=== PATIENT | male | born 1965 | race Caucasian/White ===

== ENCOUNTER 2016-08-26 16:47 | Observation (INO) | payer OTHER ==
[~2016-08-26] VITALS: Ht 175.3 cm; Wt 77.1 kg
--- NOTE | 2016-08-26 16:57 | NUR ---
TRIAGE: 51 Y/O MALE SENT TO EMERGENCY DEPARTMENT FOR RULE OUT AAA. PER PHYSICIAN 1 URGENT C[facility], BP IN ONE ARM IN OFFICE WAS 150/80 - BP WAS NEVER CHECKED IN THE OTHER ARM "BECAUSE HE WASN'T THERE LONG ENOUGH." REPORTS 08/19 UPPER ABDOMEN. LAST BOWEL MOVEMENT THIS AFTERNOON. +NAUSEA/ -VOMITING. BP IN TRIAGE LEFT ARM, MANUALLY: 148/96 BP IN TRIAGE RIGHT ARM, MANUALLY: 140/94
--- NOTE | 2016-08-26 17:01 | ED GI/GU/ABDOMINAL COMPLAINT ---
History of Present Illness General Chief Complaint: Abdominal Pain/Flank Pain Stated Complaint: PT SIB URGENT CARE FOR ABDOMINAL PAIN Source: patient Exam Limitations: no limitations Vital Signs & Intake/Output Vital Signs & Intake/Output Vital Signs Date Time Temp Pulse Resp B/P B/P Pulse O2 O2 Flow FiO2 Mean Ox Delivery Rate 08/26 2045 98.8 113 18 134/90 94 Room Air 08/26 1921 97.8 80 20 168/72 98 Room Air 08/26 1800 98.0 84 20 134/84 100 Room Air 08/26 1756 Room Air Room Air 08/26 1656 97.8 108 18 148/90 98 Room Air Room Air Allergies Coded Allergies: No Known Allergies (08/26/16) Reconcile Medications Armodafinil (Nuvigil) 150 MG TABLET 0.5 TAB PO DAILY FATIGUE (Reported) Biotin 5,000 MCG TAB.RAPDIS 1 TAB PO DAILY SUPPLEMENT (Reported) Cholecalciferol (Vitamin D3) (Vitamin D) 2,000 UNIT TABLET 4,500 IU PO DAILY SUPPLEMENT (Reported) Clobetasol Propionate (Clobex) 0.05 % SHAMPOO 1 KASSY TOP QSAT SCALP (Reported) Levothyroxine Sodium (Synthroid) 88 MCG TABLET 1 TAB PO DAILY THYROID ( Reported) Multivitamin (Daily Value) 1 EACH TABLET 1 TAB PO DAILY SUPPLEMENT (Reported) Testosterone Cypionate 100 MG/ML VIAL 40 MG IM QTUES HRT (Reported) Vitamin K2 40 MCG TABLET 100 MCG PO DAILY SUPPLEMENT (Reported) Triage Note: TRIAGE: 51 Y/O MALE SENT TO EMERGENCY DEPARTMENT FOR RULE OUT AAA. PER PHYSICIAN 1 URGENT C[facility], BP IN ONE ARM IN OFFICE WAS 150/80 - BP WAS NEVER CHECKED IN THE OTHER ARM "BECAUSE HE WASN'T THERE LONG ENOUGH." REPORTS 08/19 UPPER ABDOMEN. LAST BOWEL MOVEMENT THIS AFTERNOON. +NAUSEA/ -VOMITING. BP IN TRIAGE LEFT ARM, MANUALLY: 148/96 BP IN TRIAGE RIGHT ARM, MANUALLY: 140/94 Triage Nurses Notes Reviewed? yes Onset: Abrupt Duration: hour(s): (6-8), constant, continues in ED, getting worse Timing: single episode today Quality/Severity: cramping, dullness, moderate Severity Numbers: 6 Location: epigastric, generalized abdomen Radiation: no radiation Activities at Onset: none Prior Abdominal Problems: none Past Sexual History: Unobtainable at this time No Modifying Factors: none Associated Symptoms: abdominal pain, loss of appetite, nausea/vomiting HPI: 51-year-old male with history of hypothyroidism presents for evaluation of abdominal pain and nausea. Patient reports abdominal pain first started this morning when he woke up and has been gradually worsening. Pain is located diffusely in the abdomen but is worse in the epigastric and rlq. He rates the pain as a 6 out of 10 and it does not radiate. He describes the pain as dull discomfort. Not taking any medication to improve symptoms. There are no aggravating or alleviating factors. He reports his appetite has been decreased due to the pain today. Was associated nausea without any vomiting. No diarrhea , sick contacts, shortness of breath, chest pain, back pain, fever, urinary symptoms. No previous abdominal surgeries or similar symptoms. (ANABELA HERNANDEZ PA-C) Past History Travel History Traveled to [place] past 21 day No Medical History Any Pertinent Medical History? 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 No (ANABELA HERNANDEZ PA-C) Review of Systems Review of Systems Constitutional: Reports: no symptoms. EENTM: Reports: no symptoms. Respiratory: Reports: no symptoms. Cardiovascular: Reports: no symptoms. GI: Reports: see HPI, abdominal pain, nausea. Genitourinary: Reports: no symptoms. Musculoskeletal: Reports: no symptoms. Skin: Reports: no symptoms. Neurological/Psychological: Reports: no symptoms. Hematologic/Endocrine: Reports: no symptoms. Immunologic/Allergic: Reports: no symptoms. All Other Systems: Reviewed and Negative (ANABELA HERNANDEZ PA-C) Physical Exam Physical Exam General Appearance: well developed/nourished, no apparent distress, alert, awake , anxious, mild distress Head: atraumatic, normal appearance Eyes: Bilateral: normal appearance, PERRL, EOMI, normal inspection. Ears, Nose, Throat, Mouth: hearing grossly normal, moist mucous membrane, Tympanic normal Neck: normal inspection, supple, full range of motion, normal alignment Respiratory: normal breath sounds, chest non-tender, no respiratory distress, lungs clear Cardiovascular: regular rate/rhythm, normal peripheral pulses Peripheral Pulses: 2+ tibialis posterior (R), 2+ tibialis posterior (L), 2+ dorsalis pedis (R), 2+ dorsalis pedis (L) Gastrointestinal: normal bowel sounds, soft, no organomegaly, tenderness (RLQ, EPIGASTRIC) Male Genitals: normal genitalia Back: normal inspection, normal range of motion, no vertebral tenderness Extremities: normal range of motion Neurologic/Psych: no motor/sensory deficits, awake, alert, oriented x 3, normal gait, normal mood/affect Skin: intact, normal color, warm/dry Core Measures ACS in differential dx? No Severe Sepsis Present: No Septic Shock Present: No (ANABELA HERNANDEZ PA-C) Progress Differential Diagnosis: AAA, appendicitis, biliary colic, bowel obstruction, cholecystitis, diverticulitis, gastritis, inflamm bowel dis, pancreatitis, peptic ulcer, PUD/GERD, SBO, ureterolithiasis, UTI/pyelo Plan of Care: Orders Procedure Date/time Status Regular Diet 08/27 B Active CBC WITHOUT DIFFERENTIAL 08/27 06 Active BASIC ELECTROLYTES PLUS BUN&CR 08/27 06 Active Pathway - chart 08/[address] in observation 08/26 2319 Active Patient Data 08/26 2319 Active Code Status 08/26 2310 Active EKG 08/26 2052 Active FingerStick- Glucose 08/26 2046 Active URINALYSIS 08/26 1725 Complete LIPASE 08/26 1725 Complete C-REACTIVE PROTEIN 08/26 1725 Complete COMPREHENSIVE METABOLIC PANEL 08/26 1725 Complete CBC WITHOUT DIFFERENTIAL 08/26 1725 Complete AMYLASE 08/26 1725 Complete Intake & Output 08/26 1650 Active Wound Care/Dressing 08/26 UNK Active VTE Mechanical Prophylaxis 08/26 UNK Active Vital Signs 08/26 UNK Active Intake & Output 08/26 UNK Active Activity/Ambulation 08/26 UNK Active Current Medications Sig/Laiyah Start time Last Medication Dose Stop Time Status Admin Levothyroxine Sodium 0.088 MG DAILY 08/27 1000 UNVr (Synthroid) Heparin Sodium 5,000 UNIT Q8 08/27 0600 UNVr (Porcine) Ampicillin Sodium/ 3,000 MG Q6H 08/27 0200 UNVr Sulbactam Sodium (Unasyn) Sodium Chloride 100 ML (Normal Saline 0.9%) Acetaminophen 650 MG Q6P PRN 08/26 2315 UNVr (Tylenol) Dextrose/Sodium 1,000 ML .[id number] 08/26 2314 UNVr Chloride (D5W-1/2 Normal Saline 1000ML) Morphine Sulfate 2 MG Q2P PRN 08/26 2314 UNVr (Morphine) Morphine Sulfate 4 MG Q2P PRN 08/26 2314 UNVr (Morphine) Ondansetron HCl 4 MG Q6P PRN 08/26 2314 UNVr (Zofran) Oxycodone/ 1 TAB Q4P PRN 08/26 2314 UNVr Acetaminophen (Percocet) Oxycodone/ 2 TAB Q4P PRN 08/26 2314 UNVr Acetaminophen (Percocet) Promethazine HCl 12.5 MG Q6P PRN 08/26 2314 UNVr (Phenergen) 09/02 2313 Laboratory Tests 08/26/16 1905: Urine Color YEL, Urine Clarity CLEAR, Urine pH 7.5, Ur Specific Snowflake 1.010, Urine Protein NEG, Urine Ketones NEG, Urine Nitrite NEG, Urine Bilirubin NEG, Urine Urobilinogen 0.2, Ur Leukocyte Esterase NEG, Ur Microscopic EXAM NOT REQUIRED, Urine Hemoglobin NEG, Urine Glucose NEG 08/26/16 1740: Anion Gap 13, Estimated GFR > 60, BUN/Creatinine Ratio 21.3, Glucose 118 H, Calcium 9.5, Total Bilirubin 0.7, AST 23, ALT 48, Alkaline Phosphatase 62, C- Reactive Prot, Quant < 0.5, Total Protein 6.7, Albumin 4.3, Globulin 2.4, Albumin/Globulin Ratio 1.8, Amylase 49, Lipase 74, CBC w Diff NO MAN DIFF REQ, RBC 5.40, MCV 89.4, MCH 29.0, RDW 13.6, MPV 9.4, Gran % 92.1 H, Lymphocytes % 4.2 L, Monocytes % 3.1, Eosinophils % 0.4, Basophils % 0.2, Absolute Granulocytes 18.6 H, Absolute Lymphocytes 0.8 L, Absolute Monocytes 0.6, Absolute Eosinophils 0.1, Absolute Basophils 0, PUBS MCHC 32.4 L 5:22 PM patient seen and evaluated. Currently nontoxic appearing and afebrile. Basic blood work and urine will be ordered. Patient will be given a GI cocktail. He currently is refusing any pain medication. We'll also order a CT scan of his abdomen and pelvis with contrast and follow-up on all results. 7:17PM: CT scan of the abdomen and pelvis with contrast showed evidence of acute appendicitis. White blood cell count elevated 20. Surgery paged, patient started on Unasyn, IV Tylenol given for pain. 7:39 PM: Spoke with Dr. Cadena and surgical PA. They will come and evaluate the patient and likely taken to the OR tonight. (DAVID HIDALGO,ANABELA) Initial ED EKG: none (DAVID HIDALGO,ANABELA) Departure Departure Disposition: STILL A PATIENT Condition: Stable Clinical Impression Primary Impression: Acute appendicitis Qualifiers: Acute appendicitis type: unspecified acute appendicitis type Qualified Code: K35.80 - Unspecified acute appendicitis Referrals: MERLY FUENTES,JARVIS Harrison (PCP/Family) Departure Forms: Customer Survey General Discharge Information OR/GI Note Spoke With: JOE SUNG DO ED Treatment Decision: LIGIA WINSTON requires urgent operative management or an emergent procedure that cannot be performed in the Emergency Room setting. CT scan of the abdomen and pelvis showed evidence of acute appendicitis. White blood cell count was elevated to 20. Patient will be taken to the OR from the emergency department for laparoscopic appendectomy. 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 I have also reviewed all the pertinent lab results and diagnostic results. I agree with the findings and the plan of care as documented in the PA's/GRAIN UNLOADER MACHINE's documentation. [] I have reviewed the ED Record and agree with the PA's/GRAIN UNLOADER MACHINE's documentation. [] Additions or exceptions (if any) to the PAs/GRAIN UNLOADER MACHINE's note and plan are summarized below: [] (ELSIE FUENTES,RADHA)
--- NOTE | 2016-08-26 17:17 | NUR ---
VIOLET HERNANDEZ AT BEDSIDE
[2016-08-26] MEDS ORDERED: SYNTHROID88 MCG PO (17:31)
[2016-08-26] MEDS ORDERED: BIOTIN5000 MCG PO (17:32)
[2016-08-26] MEDS ORDERED: VITAMIN D2000 UNI1 PO (17:32)
[2016-08-26] MEDS ORDERED: DAILY VALUE1 EACH PO (17:32)
[2016-08-26] MEDS ORDERED: TESTOSTERO100 MG/1 M IM (17:33)
[2016-08-26] MEDS ORDERED: CLOBEX118 ML TOP (17:33)
[2016-08-26] MEDS ORDERED: VITAMIN K240 MCG PO (17:34)
[2016-08-26] MEDS ORDERED: NUVIGIL150 M1 PO (17:34)
--- NOTE | 2016-08-26 17:55 | NUR ---
PT MEDICATED WITH GI COCKTAIL PER ORDERS IV ACCESS ESTABLISHED, #20 LFA IVF N/S INFUSION INITIATED PER ORDERS
[2016-08-26 18:04] LABS: ABSOLUTE BASOPHIL COUNT 0 /CUMM (0.0-0.2); ABSOLUTE EOSINOPHIL COUNT 0.1 /CUMM (0.0-0.7); ABSOLUTE GRANULOCYTE CT 18.6 /CUMM (1.4-6.5); ABSOLUTE LYMPH COUNT 0.8 /CUMM (1.2-3.4); ABSOLUTE MONOCYTE COUNT 0.6 /CUMM (0.10-0.60); BASOPHIL % 0.2 % (0.0-2.0); EOSINOPHIL % 0.4 % (0-5); GRANULOCYTE % 92.1 % (42.2-75.2); HEMATOCRIT 48.3 % (42-52); MEAN CORPUSCULAR HGB CONC 32.4 G/DL (33.0-37.0); MEAN CORPUSCULAR VOLUME 89.4 FL (80.0-94.0); MEAN PLATELET VOLUME 9.4 FL (7.4-10.4); PLATELET COUNT 286 /CUMM (130-400); RBC DISTRIBUTION WIDTH 13.6 % (11.5-14.5); WHITE BLOOD CELL COUNT 20.2 /CUMM (4.8-10.8)
--- NOTE | 2016-08-26 19:07 | CT SCAN REPORT ---
EXAMINATION: CT ABDOMEN AND PELVIS WITH CONTRAST CLINICAL INFORMATION: Generalized abdominal pain. Presumptive diagnosis of pancreatitis and small bowel obstruction. COMPARISON: None. TECHNIQUE: Multidetector CT volumetric acquisition of the abdomen and pelvis was performed after the administration of 95 mL of intravenous Optiray 320. The data set was reformatted in the sagittal and coronal planes and reviewed on an independent workstation. DLP: 295.7 mGy-cm. FINDINGS: LOWER CHEST: Dependent atelectasis in both lung bases. LIVER, GALLBLADDER, BILIARY TREE: Liver normal size and attenuation. No focal cystic or solid mass or intra-or extrahepatic ductal dilatation. Hepatic and portal veins patent. Gallbladder is contracted and suboptimally assessed, but grossly unremarkable. PANCREAS: Normal. No evidence of acute pancreatitis. No ductal dilatation, mass, or surrounding stranding. SPLEEN: Normal size and appearance. Small accessory splenule is seen in the splenic hilar region. Splenic vein patent. ADRENAL GLANDS AND KIDNEYS: Adrenal glands normal. Kidneys bilaterally symmetric in size and function. No focal mass, hydronephrosis, nephrolithiasis or perinephric stranding. URETERS AND BLADDER: Ureters decompressed and within normal limits. Bladder partially distended and within normal limits. PELVIC ORGANS: Prostate gland mildly enlarged and heterogeneous. Seminal vesicles mildly enlarged. GASTROINTESTINAL TRACT: No evidence of bowel obstruction. Small and large bowel loops decompressed. Appendix is retrocecal in appearance and abnormally dilated and fluid-filled with a maximal transverse diameter of 1.3 cm. There is mild surrounding periappendiceal stranding and findings are highly suspicious for acute appendicitis. No periappendiceal phlegmon or abscess is seen and no evidence of bowel perforation is noted. ABDOMINAL WALL: There is a tiny fat-containing umbilical hernia. LYMPHOVASCULAR STRUCTURES: Abdominal aorta normal in caliber. No periaortic collections. No abdominal or pelvic adenopathy or free fluid collection. BONES: There is minimal vertebral endplate spurring seen in the lower thoracic spine and throughout the lumbar spine. No suspicious bone findings are noted. IMPRESSION: 1. Above findings are highly suspicious for uncomplicated acute appendicitis. 2. No evidence of bowel obstruction/perforation. 3. No evidence of pancreatitis. 4. Tiny fat-containing umbilical hernia. 5. Enlarged heterogeneous prostate gland. Findings discussed with Jones Robles PA-C 08/26/2016, 6:57 PM and it was ascertained that the content and urgency of the exam results was understood at the time of direct communication.
--- NOTE | 2016-08-26 19:17 | NUR ---
PT MEDICATED WITH 1G OFFIRMEV PER EMAR
--- NOTE | 2016-08-26 19:59 | NUR ---
PT MEDICATED WITH 3G UNASYN PER EMAR. NO BLOOD CULTURES REQUIRED BEFORE MEDICATION ADMINISTRATION PER VIOLET HERNANDEZ.
--- NOTE | 2016-08-26 20:23 | NUR ---
SURGICAL PA AT BEDSIDE
--- NOTE | 2016-08-26 20:50 | NUR ---
PRE-OP CHECKLIST COMPLETED AND GIVEN TO ANESTHESIA. ANESTHESIA AT BEDSIDE.
--- NOTE | 2016-08-26 20:54 | NUR ---
PT TAKEN TO OR
--- NOTE | 2016-08-26 21:13 | History & Physical Pre-Op ---
LLOYD GILLESPIE 08/26/16 2103: General Information and HPI History of Present Illness: Patient presents to the ER today with complaints of abdominal pain that began this am. He states that he felt diffuse abdominal discomfort that persisted after a bowel movement and worsened throughout the day. His discomfort was not relieved after ingesting food and he began to feel general malaise. He went to an urgent care facility prior to coming to emergency department and was advised to seek a higher level of care to rule out appendicitis. He denies having any nausea or vomitting. He did not have any loose stools. Allergies/Medications Allergies: Coded Allergies: No Known Allergies (08/26/16) Home Med list Armodafinil (Nuvigil) 150 MG TABLET 0.5 TAB PO DAILY FATIGUE (Reported) Biotin 5,000 MCG TAB.RAPDIS 1 TAB PO DAILY SUPPLEMENT (Reported) Cholecalciferol (Vitamin D3) (Vitamin D) 2,000 UNIT TABLET 4,500 IU PO DAILY SUPPLEMENT (Reported) Clobetasol Propionate (Clobex) 0.05 % SHAMPOO 1 KASSY TOP QSAT SCALP (Reported) Levothyroxine Sodium (Synthroid) 88 MCG TABLET 1 TAB PO DAILY THYROID ( Reported) Multivitamin (Daily Value) 1 EACH TABLET 1 TAB PO DAILY SUPPLEMENT (Reported) Testosterone Cypionate 100 MG/ML VIAL 40 MG IM QTUES HRT (Reported) Vitamin K2 40 MCG TABLET 100 MCG PO DAILY SUPPLEMENT (Reported) Past History Medical History Neurological: FATIGUE 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 EENTM: Reports: no symptoms. Cardiovascular: Reports: no symptoms. Respiratory: Reports: no symptoms. GI: Reports: abdominal pain. Genitourinary: Reports: no symptoms. Musculoskeletal: Reports: no symptoms. Skin: Reports: no symptoms. Neurological/Psychological: Reports: no symptoms. Hematologic/Endocrine: Reports: no symptoms. Immunologic/Allergic: Reports: no symptoms. All Other Systems: Reviewed and Negative Exam & Diagnostic Data Last 24 Hrs of Vital Signs/I&O Vital Signs Date Time Temp Pulse Resp B/P B/P Pulse O2 O2 Flow FiO2 Mean Ox Delivery Rate 08/26 2045 98.8 113 18 134/90 94 Room Air 08/26 1921 97.8 80 20 168/72 98 Room Air 08/26 1800 98.0 84 20 134/84 100 Room Air 08/26 1756 Room Air Room Air 08/26 1656 97.8 108 18 148/90 98 Room Air Room Air Physical Exam: General: Alert and oriented x3, no acute distress Cardiac: RRR, [id number] Pulm: Non labored respiratory effort, CTA bilaterally Abdomen: Non-distended, diffuse tenderness in epigastric region presently Extremities: Moves all extremities, distal sensation intact, skin warm and well perfused, no jaundice, no peripheral edema, calves soft and non-tender bilaterally Last 24 Hrs of Labs/Maxim: Laboratory Tests 08/26/16 1740: Anion Gap 13, Estimated GFR > 60, BUN/Creatinine Ratio 21.3, Glucose 118 H, Calcium 9.5, Total Bilirubin 0.7, AST 23, ALT 48, Alkaline Phosphatase 62, C- Reactive Prot, Quant < 0.5, Total Protein 6.7, Albumin 4.3, Globulin 2.4, Albumin/Globulin Ratio 1.8, Amylase 49, Lipase 74, CBC w Diff NO MAN DIFF REQ, RBC 5.40, MCV 89.4, MCH 29.0, RDW 13.6, MPV 9.4, Gran % 92.1 H, Lymphocytes % 4.2 L, Monocytes % 3.1, Eosinophils % 0.4, Basophils % 0.2, Absolute Granulocytes 18.6 H, Absolute Lymphocytes 0.8 L, Absolute Monocytes 0.6, Absolute Eosinophils 0.1, Absolute Basophils 0, PUBS MCHC 32.4 L Diagnostic Data Other Results PATIENT: LIGIA WINSTON PRESENT AGE: 51 PATIENT ACCOUNT NO: [id number] : 64 LOCATION: [facility] ORDERING PHYSICIAN: ANABELA HERNANDEZ PA-C SERVICE DATE: 08/26/16 EXAM TYPE: CAT - CT ABD & PELVIS W IV CONTRAST EXAMINATION: CT ABDOMEN AND PELVIS WITH CONTRAST CLINICAL INFORMATION: Generalized abdominal pain. Presumptive diagnosis of pancreatitis and small bowel obstruction. COMPARISON: None. TECHNIQUE: Multidetector CT volumetric acquisition of the abdomen and pelvis was performed after the administration of 95 mL of intravenous Optiray 320. The data set was reformatted in the sagittal and coronal planes and reviewed on an independent workstation. DLP: 295.7 mGy-cm. FINDINGS: LOWER CHEST: Dependent atelectasis in both lung bases. LIVER, GALLBLADDER, BILIARY TREE: Liver normal size and attenuation. No focal cystic or solid mass or intra-or extrahepatic ductal dilatation. Hepatic and portal veins patent. Gallbladder is contracted and suboptimally assessed, but grossly unremarkable. PANCREAS: Normal. No evidence of acute pancreatitis. No ductal dilatation, mass, or surrounding stranding. SPLEEN: Normal size and appearance. Small accessory splenule is seen in the splenic hilar region. Splenic vein patent. ADRENAL GLANDS AND KIDNEYS: Adrenal glands normal. Kidneys bilaterally symmetric in size and function. No focal mass, hydronephrosis, nephrolithiasis or perinephric stranding. URETERS AND BLADDER: Ureters decompressed and within normal limits. Bladder partially distended and within normal limits. PELVIC ORGANS: Prostate gland mildly enlarged and heterogeneous. Seminal vesicles mildly enlarged. GASTROINTESTINAL TRACT: No evidence of bowel obstruction. Small and large bowel loops decompressed. Appendix is retrocecal in appearance and abnormally dilated and fluid-filled with a maximal transverse diameter of 1.3 cm. There is mild surrounding periappendiceal stranding and findings are highly suspicious for acute appendicitis. No periappendiceal phlegmon or abscess is seen and no evidence of bowel perforation is noted. ABDOMINAL WALL: There is a tiny fat-containing umbilical hernia. LYMPHOVASCULAR STRUCTURES: Abdominal aorta normal in caliber. No periaortic collections. No abdominal or pelvic adenopathy or free fluid collection. BONES: There is minimal vertebral endplate spurring seen in the lower thoracic spine and throughout the lumbar spine. No suspicious bone findings are noted. IMPRESSION: 1. Above findings are highly suspicious for uncomplicated acute appendicitis. 2. No evidence of bowel obstruction/perforation. 3. No evidence of pancreatitis. 4. Tiny fat-containing umbilical hernia. 5. Enlarged heterogeneous prostate gland. Findings discussed with Anabela Hernandez PA-C 08/26/2016, 6:57 PM and it was ascertained that the content and urgency of the exam results was understood at the time of direct communication. DICTATED BY: LISA RENTERIA MD DATE/TIME DICTATED:08/26/161846 NUT PACKER:ARTIE DATE/TIME TRANSCRIBED:08/26/161846 Assessment/Plan Assessment/Plan: This is a 51 year old male who presents today with acute abdominal pain. Had ct scan of abdomen which demonstrates an acute appendicits. His past medical history is significant for hypothyroidism. Past surgical history was a reduction of a broken arm as a child, no other surgical history reported. He has no known drug allergies, no known personal or family history of anesthesia complications. -Plan for laparoscopic appendectomy this evening -Unasyn IV 3 grams now -Offirmev for pain -Pre-op ekg/labs to be reviewed -Plan for discharge to home pending surgical outcome, if perforated, will admit for iv antibiotics -Discussed with Dr. Peter As Ranked By This Provider Problem List: 1. Acute appendicitis PINEDA REID ABRAHAM 08/26/16 2209: Attending MD Review Statement Attending Statement Attending MD Statement: examined this patient, discuss w/resident/PA/PHOTO EDITOR, agreed w/resident/PA/PHOTO EDITOR, discussed with family, reviewed images Attending Assessment/Plan: Patient seen and examined, agree with above. Abdominal pain that started earlier today. Clinically and confirmed with CT Abd/Pelvis diagnosis of acute appendicitis. AVSS. Abd-soft, right sided tenderness. WBC 20. Will admit, NPO/ IVF/IV Abx, plan for Lap Appy tonight. D/W patient and ED staff.
--- NOTE | 2016-08-26 22:17 | Operative Report ---
Operative/Inv Procedure Report Surgery Date: 08/26/16 Name of Procedure: Laparoscopic Appendectomy Pre-Operative Diagnosis: Acute Appendicitis Post-Operative Diagnosis: Same Estimated Blood Loss: less than 50ml Surgeon/[employer] Officer: JOE HOLMAN APRN Anesthesia: general endotracheal tube IV Fluids: 1900 cc Drains: None Specimens: Appendix Complications: None Condition: Stable Operative Indication: This is a 51-year-old male that presented to the emergency room with abdominal pain. After appropriate workup was completed the patient was diagnosed with acute appendicitis. A laparoscopic appendectomy was discussed in detail. All risks including but not limited to bleeding, infection, and injury to surrounding bowel were discussed in detail. The patient understood everything and decided to proceed. Operative/Procedure Note Note: The patient was brought to the operating room and placed on the table in supine position. Venodyne stockings were placed and adequate general endotracheal anesthesia was obtained. The patient was prepped and draped in standard surgical fashion. Began the procedure by making a 2 cm transverse incision in the infraumbilical crease. Incision was carried down to the fascia. Once the fascia was clearly visualized it was picked up between 2 Cora clamps and divided in the midline. Once we entered the peritoneum 2 stay Vicryl sutures were placed on each side and a 12 mm blunt port was inserted. The abdominal cavity was insufflated to 15 mmHg. And a 10 mm 45 laparoscope was introduced. Upon initial examination no obvious gross pathology was seen, some hyperemia and inflammatory reaction was noted in the right lower quadrant. Accessory trocars were placed, both 5 mm, one in the left lower quadrant and one suprapubic. Ascending colon was identified and traced proximally, terminal ileum was identified, and we did note the appendix coursing in a retrocecal fashion. The base of the appendix was identified and appeared healthy. Distal appendix was markedly inflamed and thickened and adhered to the sidewall and to the omentum. Using blunt dissection and harmonic scalpel the appendix was carefully dissected away from surrounding structures. Once the appendix was away from the omentum and the sidewall the mesoappendix was divided using Harmonic scalpel maintaining hemostasis until the appendiceal base was clearly visualized and freely up in the air. At that point we switched to a 5 mm laparoscope and a 45 mm berg Endo WENCESLAO load was inserted and the base was transected. The appendix was placed in an Endobag and removed through the umbilical trocar site. The abdominal cavity was reinsufflated and we switched back to a 10 mm laparoscope. Staple line was examined and some bleeding was noted, that was controlled using endoclips. No other abnormalities were noted. The pelvis and the right lower quadrant were irrigated until clear. All ports were removed under direct visualization, no obvious bleeding was noted. The umbilical trocar site was closed using 0 Vicryl suture. The skin was closed using 4-0 Monocryl. Steri-Strips and dressings were placed. The patient was successfully extubated and transferred to the recovery room in stable condition. The patient tolerated procedure well with no complications . Findings: Acute suppurative appendicitis, non-perforated CC: MERLY FUENTES,JARVIS Harrison
[2016-08-27 00:35] VITALS: BP 122/84
--- NOTE | 2016-08-27 00:58 | Admission Core Measures ---
Admission Lab Results I reviewed the following labs: Laboratory Tests 08/26 08/26 1905 1740 Chemistry Sodium (137 - 145 mmol/L) 142 Potassium (3.5 - 5.1 mmol/L) 4.2 Chloride (98 - 107 mmol/L) 103 Carbon Dioxide (22 - 30 mmol/L) 26 Anion Gap (5 - 16) 13 BUN (9 - 20 mg/dL) 17 Creatinine (0.7 - 1.2 mg/dL) 0.8 Estimated GFR (>60 ml/min) > 60 BUN/Creatinine Ratio (7 - 25 %) 21.3 Glucose (65 - 99 mg/dL) 118 H Calcium (8.4 - 10.2 mg/dL) 9.5 Total Bilirubin (0.2 - 1.3 mg/dL) 0.7 AST (17 - 59 U/L) 23 ALT (21 - 72 U/L) 48 Alkaline Phosphatase (< 127 U/L) 62 C-Reactive Prot, Quant (<1.0 mg/dL) < 0.5 Total Protein (6.3 - 8.2 g/dL) 6.7 Albumin (3.5 - 5.0 g/dL) 4.3 Globulin (1.9 - 4.2 gm/dL) 2.4 Albumin/Globulin Ratio (1.1 - 2.2 %) 1.8 Amylase (30 - 110 U/L) 49 Lipase (23 - 300 U/L) 74 Hematology CBC w Diff NO MAN DIFF REQ WBC (4.8 - 10.8 /CUMM) 20.2 H RBC (4.70 - 6.10 /CUMM) 5.40 Hgb (14.0 - 18.0 G/DL) 15.7 Hct (42 - 52 %) 48.3 MCV (80.0 - 94.0 FL) 89.4 MCH (27.0 - 31.0 PG) 29.0 RDW (11.5 - 14.5 %) 13.6 Plt Count (130 - 400 /CUMM) 286 MPV (7.4 - 10.4 FL) 9.4 Gran % (42.2 - 75.2 %) 92.1 H Lymphocytes % (20.5 - 51.1 %) 4.2 L Monocytes % (1.7 - 9.3 %) 3.1 Eosinophils % (0 - 5 %) 0.4 Basophils % (0.0 - 2.0 %) 0.2 Absolute Granulocytes (1.4 - 6.5 /CUMM) 18.6 H Absolute Lymphocytes (1.2 - 3.4 /CUMM) 0.8 L Absolute Monocytes (0.10 - 0.60 /CUMM) 0.6 Absolute Eosinophils (0.0 - 0.7 /CUMM) 0.1 Absolute Basophils (0.0 - 0.2 /CUMM) 0 PUBS MCHC (33.0 - 37.0 G/DL) 32.4 L Urines Urine Color (YEL,AMB,STR) YEL Urine Clarity (CLEAR) CLEAR Urine pH (5.0 - 8.0) 7.5 Ur Specific [place] (1.001 - 1.035) 1.010 Urine Protein (NEG,<30 MG/DL) NEG Urine Ketones (NEG) NEG Urine Nitrite (NEG) NEG Urine Bilirubin (NEG) NEG Urine Urobilinogen (0.1 - 1.0 EU/dl) 0.2 Ur Leukocyte Esterase (NEG) NEG Ur Microscopic EXAM NOT REQUIRED Urine Hemoglobin (NEG) NEG Urine Glucose (N MG/DL) NEG Admission Meds I reviewed the following Meds: Current Medications Sig/Aliyah Start time Last Medication Dose Stop Time Status Admin Acetaminophen 650 MG Q6P PRN 08/26 2314 UNVr (Tylenol) Ampicillin Sodium/ 3,000 MG Q6H 08/27 0200 UNVr Sulbactam Sodium (Unasyn) Sodium Chloride 100 ML (Normal Saline 0.9%) Dextrose/Sodium 1,000 ML .[id number] 08/26 2314 UNVr 08/27 Chloride 0029 (D5W-1/2 Normal Saline 1000ML) Heparin Sodium 5,000 UNIT Q8 08/27 0600 UNVr (Porcine) Levothyroxine Sodium 0.088 MG DAILY 08/27 1000 UNVr (Synthroid) Morphine Sulfate 2 MG Q2P PRN 08/26 2314 UNVr (Morphine) Morphine Sulfate 4 MG Q2P PRN 08/26 2314 UNVr (Morphine) Ondansetron HCl 4 MG Q6P PRN 08/26 2314 UNVr (Zofran) Oxycodone/ 1 TAB Q4P PRN 08/26 2314 UNVr Acetaminophen (Percocet) Oxycodone/ 2 TAB Q4P PRN 06/17 2315 UNVr Acetaminophen (Percocet) Promethazine HCl 12.5 MG Q6P PRN 08/26 2314 UNVr (Phenergen) 09/02 2314 Acute Coronary Syndrome Inclusion Criteria ACS Diagnosis No Inpatient Core Measures LDL Reminder: If No, please order W/I first 24hr of stay Congestive Heart Failure Inclusion Criteria CHF Diagnosis No Cerebrovascular accident Inclusion Criteria CVA/TIA Diagnosis No Inpatient Core Measures Bedside Swallow Eval Reminder: If BSE failed, place ST order Antithrombotic Reminder: Order Antithrombotic Medication by end of day 2 Antithrombotic Reminder: Document Reason Antithrombotic Not ordered by end of day 2 AFIB/Flutter Reminder: If Present, add to problem list AFIB/Flutter Reminder: Order Anticoag Medication for pts with AFIB/Flutter Atherosclerosis Reminder: If Present, add to problem list LDL Reminder: If No, please order W/I first 24hr of stay PT Order Reminder: If No, please order Venous thromboembolism Inpatient Core Measures VTE Risk Factors: Age > 40, Surgery [facility] prophylaxis d/t No contraindications No VTE Pharm Prophylaxis d/t No contraindications Inclusion Criteria - Per Current guidelines, there needs to be overlap - treatment for the first 5 days of Warfarin therapy. - Parenteral Anticoagulation (IV or SC) needs to be - given along with Warfarin therapy. VTE Diagnosis No VTE Type NONE VTE Confirmed by (Test) NONE Problem List As ranked by this Provider includes Assessment & Plan 1. Acute appendicitis HOME MEDS Home Med List Armodafinil (Nuvigil) 150 MG TABLET 0.5 TAB PO DAILY FATIGUE (Reported) Biotin 5,000 MCG TAB.RAPDIS 1 TAB PO DAILY SUPPLEMENT (Reported) Cholecalciferol (Vitamin D3) (Vitamin D) 2,000 UNIT TABLET 4,500 IU PO DAILY SUPPLEMENT (Reported) Clobetasol Propionate (Clobex) 0.05 % SHAMPOO 1 KASSY TOP QSAT SCALP (Reported) Levothyroxine Sodium (Synthroid) 88 MCG TABLET 1 TAB PO DAILY THYROID ( Reported) Multivitamin (Daily Value) 1 EACH TABLET 1 TAB PO DAILY SUPPLEMENT (Reported) Testosterone Cypionate 100 MG/ML VIAL 40 MG IM QTUES HRT (Reported) Vitamin K2 40 MCG TABLET 100 MCG PO DAILY SUPPLEMENT (Reported)
[2016-08-27] MEDS ORDERED: PERCOCET 5-3251 EACH PO (00:59)
--- NOTE | 2016-08-27 01:03 | Patient Discharge Instructions ---
Discharge Instructions General Discharge Information You were seen/treated for: Acute appendicitis You had these procedures: Laparoscopic appendectomy Watch for these problems: Increasing pain despite the use of pain medication. Increasing redness, warmth, swelling. Drainage from incisions Fever greater than 101.5 Persistent nausea and vomitting Inability urinate, move bowels, or pass gas. Do not soak the wound: Yes No bath, but you may shower: Yes Other wound care: Keep wound clean and dry. Allow steri strips to fall off, do not attempt to peel them off. This may take several days. Special Instructions: Advance diet as tolerated Diet Continue normal diet: Yes Recommended Diet: Regular Activity Full Activity/No Limits: No Activity Self Limited: Yes Pounds, do NOT lift more than: 10 Acute Coronary Syndrome Inclusion Criteria At DC or during hospital stay patient has or had the following: ACS DIAGNOSIS No Discharge Core Measures Meds if any: Prescribed or Continued at Discharge Meds if any: NOT Prescribed or Continued at Discharge Congestive Heart Failure Inclusion Criteria At DC or during hospital stay patient has or had the following: CHF DIAGNOSIS No Discharge Core Measures Meds if any: Prescribed or Continued at Discharge Meds if any: NOT Prescribed or Continued at Discharge Cerebrovascular accident Inclusion Criteria At DC or during hospital stay patient has or had the following: CVA/TIA Diagnosis No Discharge Core Measures Meds if any: Prescribed or Continued at Discharge Meds if any: NOT Prescribed or Continued at Discharge Venous thromboembolism Inclusion Criteria VTE Diagnosis No VTE Type NONE VTE Confirmed by (Test) NONE Discharge Core Measures - Per Current guidelines, there needs to be overlap - treatment for the first 5 days of Warfarin therapy. - If discharged on Warfarin prior to 5 days of - overlap therapy, the patient will need to be - assessed for post discharge needs including - *Post discharge parental anticoagulation - *Warfarin and/or parental anticoagulation education - *Follow up date to check INR post discharge At least 5 days overlap therapy as Inpatient No Meds if any: Prescribed or Continued at Discharge Note: Overlap Therapy is Warfarin and Anticoagulant Meds if any: NOT Prescribed or Continued at Discharge
--- NOTE | 2016-08-27 01:09 | Surgical Discharge Summary ---
Visit Information Visit Dates Admission Date: 08/26/16 Discharge Date: 08/27/17 History of Present Illness Chief Complaint: Acute abdominal pain secondary to appendicitis Medical History Neurological: FATIGUE Endocrine: hypothyroidism [employer]/Reproductive: LOW TESTOSTERONE Surgical History Pertinent Surgical History: none Psychosocial History What is Your Primary Language? American ETOH Use: denies use Review of Systems: See H&P Hospital Course Course Attending Physician: JOE PETER DO Primary Care Physician: JARVIS MORELAND MD Hospital Course: Jamey presented to Emergency Department on 08/26/2016 with complaints of abdominal pain and was found to have an acute appendicitis. He was taken to the Operating Room and underwent a laparoscopic appendectomy. He tolerated the procedure well. He was placed in observation status and sent to a general surgical floor for further administration of IV antibiotics and pain medication. His diet was advanced and tolerated, he voided spontaneously. At the time of discharge, his vital signs were stable and within normal limits. Allergies: Coded Allergies: No Known Allergies (08/26/16) Disposition Summary Disposition Principal Diagnosis: Acute appendicitis Additional Diagnosis: none Discharge Disposition: home or self care Discharge Instructions General Discharge Information Code Status: Full Code Patient's Diet: Regular, advance as tolerated Patient's Activity: As tolerated, avoid heavy lifting. Follow-Up Instructions/Appts: Follow up with Dr. Peter in 2 weeks. Medications at Discharge Discharge Medications: Continue taking these medications: Levothyroxine Sodium (Synthroid) 88 MCG TABLET 1 Tablet ORAL DAILY Qty = 90 Comments: Last Taken:08/27/16 Time: 6AM Cholecalciferol (Vitamin D3) (Vitamin D) 2,000 UNIT TABLET 4,500 International Unit ORAL DAILY Comments: NOT GIVEN IN HOSPITAL Multivitamin (Daily Value) 1 EACH TABLET 1 Tablet ORAL DAILY Comments: NOT GIVEN IN HOSPITAL Biotin (Biotin) 5,000 MCG TAB.RAPDIS 1 Tablet ORAL DAILY Comments: NOT GIVEN IN HOSPITAL Clobetasol Propionate (Clobex) 0.05 % SHAMPOO 1 Application On the skin EVERY SUNDAY Qty = 118 Comments: NOT GIVEN IN HOSPITAL Testosterone Cypionate (Testosterone Cypionate) 100 MG/ML VIAL 40 Milligram INTRAMUSC EVERY SUNDAY Qty = 10 Comments: NOT GIVEN IN HOSPITAL Armodafinil (Nuvigil) 150 MG TABLET 0.5 Tablet ORAL DAILY Qty = 15 Comments: NOT GIVEN IN HOSPITAL Vitamin K2 (Vitamin K2) 40 MCG TABLET 100 Microgram ORAL DAILY Comments: NOT GIVEN IN HOSPITAL Start taking the following new medications: Oxycodone HCl/Acetaminophen (Percocet 5-325 MG Tablet) 5 MG-325 MG TABLET 1-2 Tablet ORAL EVERY 4-6 HOURS as needed for PAIN Qty = 36 No Refills Comments: NOT GIVEN IN HOSPITAL
--- NOTE | 2016-08-27 01:55 | PN- General Surgery ---
Subjective Subjective: No acute post operative events reported. Patient without complaints of pain presently. Denies chest pain, shortness of breath and difficulty breathing. Denies nausea and vomitting. Objective Vital Signs and I&Os Vital Signs Date Time Temp Pulse Resp B/P B/P Pulse O2 O2 Flow FiO2 Mean Ox Delivery Rate 08/27 0035 98.0 86 18 122/84 95 Room Air 08/26 2046 98.8 113 18 134/90 94 Room Air 08/26 1921 97.8 80 20 168/72 98 Room Air 08/26 1800 98.0 84 20 134/84 100 Room Air 08/26 1756 Room Air Room Air 08/26 1656 97.8 108 18 148/90 98 Room Air Room Air Intake & Output 08/27 0800 08/27 0000 08/26 1600 08/26 0800 08/26 0000 08/25 1600 Intake Total 1000 Output Total 600 Balance -600 1000 Intake, IV 1000 Output, Urine 600 Patient 170 lb 170 lb Weight Weight Reported by Patient Measurement Method Physical Exam: General: Alert and oriented x3, no acute distress Cardiac: RRR, s1s2 Pulm: CTA bialterally Abd: Non-tender, softly distended, Dressings dry and intact Extremties: Moves all extremities, distal senstion intact, no peripheral edema, skin warm and dry , calves soft and non-tender Assessment/Plan Assessment/Plan This is a 51 year old male, PMH significant for hypothyroidism and obstructive sleep apnea, presented to ER today with c/o acute abdominal pain related to appendicitis. Was brought to operating room for laparoscopic appendectomy. Was placed in observation status post op for administration of iv abx x2 additional doses and monitoring of o2 status Unasyn 3g q6hr for two additional post op doses Percocet for po pain control, morphine iv as needed for breakthrough Sub Q heparin for dvt ppx OOB Diet as tolerated (reg) Anticipate discharge to home tomorrow am Discussed with Dr. Peter Core Measures/Miscellaneous Venous Thromboembolism VTE Risk Factors: Age > 40, Surgery VTE Contraindications: No Contraindications VTE Diagnosis: No VTE Type: NONE VTE Confirmed by (Test): NONE Beta Maritza Is Beta Maritza a Home Med? No Antibiotics Is Patient on Antibiotics? Yes If Yes: infection
[2016-08-27 02:02] VITALS: BP 114/72
[2016-08-27 04:15] VITALS: BP 110/72
[2016-08-27 06:00] VITALS: BP 118/64
--- NOTE | 2016-08-27 08:12 | PN- General Surgery ---
Subjective Subjective: Pt is now s/p lap appy. He has no major complaints. Pain is well controlled. He is tolerating sips of water. Awaiting breakfast. No nausea. No flatus or BM as of yet. Otherwise denies GALO, dizziness, CP, SOB. Objective Vital Signs and I&Os Vital Signs Date Time Temp Pulse Resp B/P B/P Pulse O2 O2 Flow FiO2 Mean Ox Delivery Rate 08/27 0600 98.0 65 18 118/64 96 Room Air 08/27 0415 98.5 88 18 110/72 94 Room Air 08/27 0202 98.2 75 18 114/72 93 Room Air 08/27 0035 98.0 86 18 122/84 95 Room Air 08/26 2046 98.8 113 18 134/90 94 Room Air 08/26 1921 97.8 80 20 168/72 98 Room Air 08/26 1800 98.0 84 20 134/84 100 Room Air 08/26 1756 Room Air Room Air 08/26 1656 97.8 108 18 148/90 98 Room Air Room Air Intake & Output 08/27 1600 08/27 0800 08/27 0000 08/26 1600 08/26 0800 08/26 0000 Intake Total 1060 1000 Output Total 2400 Balance -1340 1000 Intake, IV 700 1000 Intake, Oral 360 Number 0 Bowel Movements Output, Urine 2400 Patient 170 lb 170 lb Weight Weight Reported by Patient Measurement Method Physical Exam: Gen: Pt is awake and alert. NAD. Cardiac: regular Pulm: CTA bilaterally Abdomen: Soft, moderately distended. Mild tenderness to palpation throughout, but mostly ana luisa-incisional. Normal BS were heard. Dressings are c/d/i. Ext: no edema. Assessment/Plan Assessment/Plan Pt is a 51 yo M who is now POD #1 s/p lap appy. He tolerated surgery well and remains stable. Plan: -Ok to heplock iv fluids and advance diet as tolerated. -PO meds can be used for pain control if needed. -Encourage ambulation. Heparin SC and alps for DVT ppx. -2 doses of postop antibiotics are complete. -Plan for DC home after breakfast if he tolerates. Core Measures/Miscellaneous Venous Thromboembolism VTE Risk Factors: Age > 40, Surgery VTE Contraindications: No Contraindications VTE Diagnosis: No VTE Type: NONE VTE Confirmed by (Test): NONE Beta Maritza Is Beta Maritza a Home Med? No Antibiotics Is Patient on Antibiotics? No
[2016-08-27 08:32] LABS: ABSOLUTE BASOPHIL COUNT 0 /CUMM (0.0-0.2); ABSOLUTE EOSINOPHIL COUNT 0 /CUMM (0.0-0.7); ABSOLUTE GRANULOCYTE CT 18.4 /CUMM (1.4-6.5); ABSOLUTE LYMPH COUNT 1.2 /CUMM (1.2-3.4); ABSOLUTE MONOCYTE COUNT 0.4 /CUMM (0.10-0.60); BASOPHIL % 0 % (0.0-2.0); EOSINOPHIL % 0 % (0-5); HEMATOCRIT 48.3 % (42-52); MEAN CORPUSCULAR HGB 29.2 PG (27.0-31.0); MEAN CORPUSCULAR HGB CONC 32.4 G/DL (33.0-37.0); MEAN CORPUSCULAR VOLUME 90.2 FL (80.0-94.0); MEAN PLATELET VOLUME 11.1 FL (7.4-10.4); PLATELET COUNT 227 /CUMM (130-400); RBC DISTRIBUTION WIDTH 13.4 % (11.5-14.5); RED BLOOD CELL CT 5.36 /CUMM (4.70-6.10)
== END 2016-08-27 09:33 ==
LOC: ERH 16:47 → CRI 22:52 → 2NA 08-27 00:01 → ENPENDDIS 08-27 08:27 → 2NA 08-27 09:33
PROVIDERS: Nurse Practitioner; Physician Assistant Medical; ADMIT Surgery
DX: K35.80 Unspecified acute appendicitis (principal); E03.9 Hypothyroidism, unspecified
CPT/HCPCS: 6030; 74177; 81003; 82436; 96374; 96375; G0378; J0131; J1170; J1644; J2250; J3010; J7042